=== PATIENT | female | born 1990 | race Caucasian/White ===

== ENCOUNTER 2020-05-16 08:35 | Outpatient (CLI) | payer BC ==
--- NOTE | 2020-05-16 09:59 | MRI ---
Brain MRI with and without contrast: 05/16/2020 COMPARISON: None HISTORY: Headaches, prior history of pineal cyst removal TECHNIQUE: Multiplanar multisequence MR imaging of the brain with and without contrast FINDINGS: The diffusion weighted imaging demonstrates no evidence for acute infarction. The axial gradient echo imaging demonstrates no evidence for intracranial hemorrhage. There is minimal mucosal thickening involving the alveolar recess of bilateral maxillary sinuses. Arterial flow voids at the axial level of the skull base appear grossly unremarkable on the T2-weight ed imaging. No midline shift, mass effect, or ventricular enlargement is seen. The region of the pineal gland nicolas ears unremarkable. The postcontrast imaging demonstrates no abnormal enhancement within the brain parenchyma. There are postoperative changes posteriorly in the midline occipital region. IMPRESSION: No acute findings.
[2020-05-16] MEDS ORDERED: Magnevist 469MG/ML 20 ML VIAL ONE (14:36)
== END 2020-05-16 08:36 | disposition home or self-care (01) ==
LOC: TBSIIMAG 08:35
PROVIDERS: ATTEND Family Medicine
DX: E34.8 Other specified endocrine disorders (principal); R51.9 Headache, unspecified
CPT/HCPCS: 70553; A9579